=== PATIENT | female | born 1970 | race Caucasian/White ===

== ENCOUNTER 2021-12-25 11:52 | Day surgery (SDC) | payer MEDICAID, SELFPAY ==
[2021-12-25] VITALS (7 sets, daily range): BP systolic 93–150; BP diastolic 68–95; PULSE 60–69; RESP 16–20; TEMP 36.1–36.7; O2SAT 90–97; BMI 28.6
--- NOTE | 2021-12-25 | EGD_PTH ---
PATIENT: LILLY PLUNKETT LOC: EN U#:[id number] AGE/SX: 51/F ROOM: RE12/25/[address]: Dr. Rosales Britt DO : 1970 BED: DIS: 12/25/2021 SPEC #: [id number] RECD: 12/25/21 15:49 STATUS: LIO HALINA #: [id number] NICHOLE: 12/25/21 00:[address]: Rosales Britt DEPT: SURGICAL PATHOLOGY RECD BY: Juancarlos Ruiz ENTERED: 12/26/21 10:22 SP TYPE: EGD BIOPSY AMBER DR: Dr. Antonio Saldivar DO Tissues: A - Pyloric sphincter B - Esophageal mucous membrane Procedures: Special Stain Group II Surgery Specimen Level IV Alcian Blue/PAS (control) HEADER OPERATION: EGD ([facility]) with biopsies PRE-OP DIAGNOSIS: GERD, constipation TISSUE SUBMITTED: A ? Pyloric sphincter biopsy, B ? Distal esophagus biopsy MICROSCOPIC DIAGNOSIS A. Pyloric sphincter, biopsy: Fragments of gastric mucosa with mild chronic inflammation. See comment. B. Distal esophagus, biopsy: Gastroesophageal junctional mucosa with mild chronic inflammation. Focal changes of reflux. 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 No evidence of dysplasia. See comment. AM:rosalina 12/27/2021 COMMENT A. The results of immunohistochemistry for Helicobacter pylori will be reported separately ([id number]). B. Alcian blue/PAS stain with matched control supports the above diagnosis. Immunohistochemistry ([id number]) for P53 and Ki-67 will be performed and results will be reported separately. MICROSCOPIC DESCRIPTION Slides are reviewed. GROSS DESCRIPTION A - Received in fixative is one container labeled with the patient's name and designated pyloric sphincter biopsy. The specimen consists of two irregular fragments of light cornelius soft tissue that in aggregate measure 0.7 x 0.5 x 0.1 cm. The specimen is totally submitted in one cassette. B - Received in fixative is one container labeled with the patient's name and designated distal esophagus biopsy. The specimen consists of multiple irregular fragments of light cornelius soft tissue that in aggregate measure 1 x 0.2 x 0.1 cm. The specimen is totally submitted in one cassette. / AM:rosalina 12/26/2021 TC:3 CPT: 20017 x2, 16823
--- NOTE | 2021-12-25 12:36 | PCM.HP.BLA ---
History and Physical Date of Admission: 12/25/21 Medications Hydroxyzine [Atarax] 25 mg PO TID PRN PRN #20 tablet 03/04/16 [Rx Confirmed 10/16/21] albuterol sulfate 90 mcg/actuation aerosol inhaler 2 puff INHALATION Q6H PRN 10/16/21 [History Confirmed 10/16/21] atorvastatin 20 mg tablet 20 mg PO DAILY 10/16/21 [History Confirmed 10/16/21] bupropion HCl 150 mg 24 hr tablet, extended release 150 mg PO QAM 10/16/21 [History Confirmed 10/16/21] duloxetine 60 mg capsule,delayed release 60 mg PO DAILY 10/16/21 [History Confirmed 10/16/21] methocarbamol 750 mg tablet 750 mg PO TID 10/16/21 [History Confirmed 10/16/21] omeprazole 40 mg capsule,delayed release 40 mg PO DAILY 10/16/21 [History Confirmed 10/16/21] pregabalin 75 mg capsule 75 mg PO BID 10/16/21 [History Confirmed 10/16/21] propranolol 60 mg capsule,24 hr,extended release 60 mg PO DAILY 10/16/21 [History Confirmed 10/16/21] sumatriptan succinate 50 mg tablet See Rx Instructions PO .COMPLEX 10/16/21 [History Confirmed 10/16/21] polyethylene glycol 3350 17 gram oral powder packet 17 g PO DAILY #30 ea 11/21/21 [Rx Confirmed 11/21/21] PFSH Medical History (Updated 11/21/21 @ 15:06 by Maxine Rajan BICYCLE SERVICE TECHNICIAN, BICYCLE SERVICE TECHNICIAN-C) Abnormal peripheral pulse Acid reflux Adult ADHD Anxiety Arthritis of right hip Breathlessness lying flat Cervical spine pain Degeneration of cervical intervertebral disc Degenerative arthritis of lumbar spine Depression Dermatitis Elevated blood pressure reading Fatigue Fibromyalgia Foot callus Hair loss Heart murmur History of anemia History of gastric ulcer History of tremor Hyperlipidemia Intermittent claudication Left knee pain Medical marijuana use Migraines Piriformis syndrome of right side PTSD (post-traumatic stress disorder) Right hip pain Right thyroid nodule Thoracic degenerative disc disease Thyromegaly Surgical History (Updated 10/16/21 @ 16:30 by Cande Shelley) H/O section History of ankle surgery History of hand surgery History of knee replacement History of tonsillectomy Family History (Updated 10/16/21 @ 16:25 by Cande Shelley) Mother Diabetes Father Diabetes Liver disease Migraines Social History (Updated 10/16/21 @ 16:28 by Cande Shelley) household members: other details: Granddaughter housing: house Smoking Status: Current every day smoker tobacco type: cigarettes alcohol intake: current alcohol intake frequency: other substance use type: marijuana HPI HPI Details: LILLY PLUNKETT, is a 51 F accompanied by her service dog who presents to the office today for heartburn which she has had for many years. Omeprazole 20 mg wasn't controlling her symptoms. Omeprazole dose recently increased to 40 mg daily--that is controlling her heartburn, acid refluxing to mouth, cough that led to vomiting typically in the night; all those symptoms have resolved on the 40 mg dose. Denies chest pain. Previously took Zantac plus allergy med and that combo was effective. No EGD. She has had a colonoscopy, maybe 2014 or 2015, for bowel obstruction following hysterectomy; she reports they found bleeding ulcers. Not interested in updating colonoscopy at this time. Constipation -- started 2 mos ago, thinks may be due to med changes. BMs were ok before, not daily but not problematic. Has to strain sometimes now. Max 2 BM per week now. Gets cramping in lower abd. No meds OTC tried. No melena or hematochezia. Hx includes allergies, chronic bronchitis, , hysterectomy She isn't ready to quit smoking. ROS Const Constitutional: Positive for fatigue ENT ENT: Positive for ear or mastoid pain and nasal congestion; No difficulty swallowing Cardio Cardiology: Positive for leg pain with exertion Gastro GI: Positive for change in bowel habits, constipation and heartburn; No abdominal pain, belching, bloating, change in stool character, coffee ground emesis, cramping, diarrhea, difficulty swallowing, feeling full early, excessive flatus, incontinent of stools, Vomiting blood/hematemesis, Blood in stool, loose stools, Black,tarry stools, nausea/dyspepsia, pain with swallowing, vomiting or other Musc Musculoskeletal: Positive for joint pain, back pain, muscle cramps, stiffness, Arthritis, leg pain at night and leg pain with exertion Skin Skin: Positive for dry skin and itchy eyes; No yellowing of the eye Psych Psychiatric: Positive for anxiety, Positive for depression and Positive for hyperactivity Endo Endocrine: Positive for fatigue Aller/Imm Allergy/Immunologic: Positive for itchy eyes Clarence/Lymp Hematologic/Lymphatic: No easy bleeding or easy bruising Exam Const General: cooperative, comfortable, well developed and well groomed Nutritional Appearance: overweight Eyes Conjunctivae: conjunctivae normal Sclera: sclerae normal Resp Effort & Inspection: normal respiratory effort GI Inspection: normal to inspection Palpation: soft and nontender Psych Mental Status: mental status grossly normal Mood: congruent mood Quality Reporting Tobacco Screening ([facility] 138) Smoking Status: Current every day smoker Assessment and Plan Assessment and Plan (1) GERD (gastroesophageal reflux disease): Status: Acute Plan - Maxine Rajan BICYCLE SERVICE TECHNICIAN, BICYCLE SERVICE TECHNICIAN-C: Continue omeprazole 40 mg daily since it's controlling her symptoms. We will schedule her for EGD to evaluate for esophagitis, Lala's, gastrits, ulcers. f/u 2 wks after that. (2) Constipation: Status: Acute Plan - Maxine Rajan BICYCLE SERVICE TECHNICIAN, BICYCLE SERVICE TECHNICIAN-C: rx for generic miralax daily Plan Details Other Medications: New: polyethylene glycol 3350 17 grams PO DAILY 30 ea 5RF constipation I have re-examined the patient. There are no clinical changes since date of exam.
--- NOTE | 2021-12-25 13:00 | IMM_PTH ---
PATIENT: LILLY PLUNKETT LOC: EN U#:[id number] AGE/SX: 51/F ROOM: RE12/25/[address]: Dr. Rosales Britt DO : 1970 BED: DIS: 12/25/2021 SPEC #: [id number] RECD: 12/26/21 09:22 STATUS: LIO REZohaib #: [id number] NICHOLE: 12/25/21 13:[address]: Rosales Britt DEPT: IMMUNOHISTOCHEMISTRY RECD BY: Marifer Ibrahim ENTERED: 12/26/21 09:22 SP TYPE: IMMUNO OTHR DR: Dr. Antonio Saldivar DO Tissues: A - Pyloric sphincter B - Esophagus, NOS Procedures: H Pylori (initial) P53 (initial) KI-67 (add) PHYSICIAN & INSTITUTION [place] [id number] SPECIMEN INFORMATION: Tissue Source: A ? Pyloric sphincter biopsy, B ? Distal esophagus biopsy Clinical Info: GERD, constipation Specimen Number: [id number] A & B CPT code: 45701 x2, 85314 METHODOLOGY: Deparaffinized sections of prefer/formalin-fixed tissue or PAP/DQ stained slides are incubated with monoclonal/polyclonal antibodies/oligonucleotide probes. Localization is made via biotin free immunoperoxidase method. Appropriate controls are performed and reacted as expected. Results on target cell population are indicated in the following table: RESULTS: ANTIBODY / CLONE RESULT Block A H Pylori (polyclonal) negative Block B P53 (DO-7) negative Ki-67 (30-9) positive, low These tests were developed and their performance characteristics determined by [facility]. They may not have been cleared or approved by the U.S. Food and Drug Administration. The FDA has determined that such clearance or approval is not necessary. The above immunohistochemical/dualISH markers are ordered and reviewed by the Pathologist. INTERPRETATION: A. Pyloric sphincter, biopsy: Negative for Helicobacter pylori organisms. B. Distal esophagus, biopsy: No evidence of dysplasia. AM:rosalina 12/28/2021
[2021-12-25] MEDS: Lactated Ringers 1,000 ML 15 ML IV (13:06)
--- NOTE | 2021-12-25 13:29 | OP.EGD_ITS ---
Patient Name: Lindy Nguyen Procedure Date: 12/25/2021 1:03 PM Date of : 1970 Age: 51 Procedure: Upper GI endoscopy Indications: Heartburn, Esophageal reflux Providers: Rosales Britt DO Medicines: Propofol per Anesthesia, Monitored Anesthesia Care Patient Profile: This is a 51 year old female. Refer to note in patient chart for documentation of history and physical. Patient has symptoms of chronic heartburn. Complications: No immediate complications. Procedure: Pre-Anesthesia Assessment: - Prior to the procedure, a History and Physical was performed, and patient medications and allergies were reviewed. The risks and benefits of the procedure and the sedation options and risks were discussed with the patient. All questions were answered and informed consent was obtained. Patient identification and proposed procedure were verified by the physician in the pre-procedure area. Mental Status Examination: alert and oriented. Airway Examination: normal oropharyngeal airway and neck mobility. Respiratory Examination: clear to auscultation. CV Examination: normal. Prophylactic Antibiotics: The patient does not require prophylactic antibiotics. Prior Anticoagulants: The patient has taken no previous anticoagulant or antiplatelet agents. ASA Grade Assessment: II - A patient with mild systemic disease. After reviewing the risks and benefits, the patient was deemed in satisfactory condition to undergo the procedure. The anesthesia plan was to use moderate sedation / analgesia (conscious sedation). Immediately prior to administration of medications, the patient was re-assessed for adequacy to receive sedatives. The heart rate, respiratory rate, oxygen saturations, blood pressure, adequacy of pulmonary ventilation, and response to care were monitored throughout the procedure. The physical status of the patient was re-assessed after the procedure. After obtaining informed consent, the endoscope was passed under direct vision. Throughout the procedure, the patient's blood pressure, pulse, and oxygen saturations were monitored continuously. The Endoscope was introduced through the mouth, and advanced to the second part of duodenum. The upper GI endoscopy was accomplished without difficulty. The patient tolerated the procedure well. Scope In: 1:16:19 PM Scope Out: 1:20:50 PM Total Procedure Duration Time 0 hours 4 minutes 31 seconds Findings: LA Grade A (one or more mucosal breaks less than 5 mm, not extending between tops of 2 mucosal folds) esophagitis with no bleeding was found 36 to 39 cm from the incisors. Biopsies were taken with a cold forceps for histology. Verification of patient identification for the specimen was done. Estimated blood loss was minimal. Mucosal changes including ringed esophagus and circumferential folds were found in the middle third of the esophagus. Patchy granular mucosa was found at the pylorus. Biopsies were taken with a cold forceps for histology. Verification of patient identification for the specimen was done. Estimated blood loss was minimal. The second portion of the duodenum was normal. Impression: - LA Grade A reflux esophagitis. Biopsied. - Esophageal mucosal changes suggestive of eosinophilic esophagitis. - Granular gastric mucosa. Biopsied. - Normal second portion of the duodenum. Recommendation: - Discharge patient to home. - Resume previous diet. - Continue present medications. - Await pathology results. Procedure Code(s): --- Professional --- 65130, Esophagogastroduodenoscopy, flexible, transoral; with biopsy, single or multiple CPT copyright 2017 [employer]. All rights reserved. The codes documented in this report are preliminary and upon geothermal installer review may be revised to meet current compliance requirements. Rosales Britt DO 12/25/2021 1:28:36 PM This report has been signed electronically. Number of Addenda: 1 Note Initiated On: 12/25/2021 1:03 PM Addendum Number: 1 Addendum Date: 04/26/2022 6:07:47 AM MAC was used as sedation for this procedure. Rosales Britt DO 04/26/2022 6:07:51 AM This report has been signed electronically.
--- NOTE | 2021-12-25 13:29 | OP.CCLET_ITS ---
04/26/2022 Antonio Saldivar Do Re : Upper GI endoscopy procedure for Lindy Nguyen Dear Yariel This procedure was performed on Saturday, December 25, 2021. My impressions and recommendations are as follows: Impressions : - LA Grade A reflux esophagitis. Biopsied. - Esophageal mucosal changes suggestive of eosinophilic esophagitis. - Granular gastric mucosa. Biopsied. - Normal second portion of the duodenum. Recommendations : - Discharge patient to home. - Resume previous diet. - Continue present medications. - Await pathology results. My findings are described in the full procedure note, which is enclosed. If I can be of further assistance, please feel free to contact me at . Sincerely, Rosales Britt DO 12/25/2021 1:28:36 PM This report has been signed electronically.
== END 2021-12-25 14:25 | disposition home or self-care (01) ==
LOC: EN 11:54 → AC 11:55
PROVIDERS: PCP Student in an Organized Health Care Education/Training Program; Referring Provider Student in an Organized Health Care Education/Training Program; Visit Provider Internal Medicine Gastroenterology
PROC: 0DJ08ZZ Inspection of Upper Intestinal Tract, Via Natural or Artificial Opening Endoscopic (ICD-10-PCS; CPT 43235; principal; 2021-12-25 12:55)
DX: K22.70 Barrett's esophagus without dysplasia (principal); K21.00 Gastro-esophageal reflux disease with esophagitis, without bleeding; E78.5 Hyperlipidemia, unspecified; F17.210 Nicotine dependence, cigarettes, uncomplicated; F90.9 Attention-deficit hyperactivity disorder, unspecified type; F41.9 Anxiety disorder, unspecified; F32.A Depression, unspecified; M79.7 Fibromyalgia; Z87.19 Personal history of other diseases of the digestive system; F43.10 Post-traumatic stress disorder, unspecified; Z79.899 Other long term (current) drug therapy; M16.11 Unilateral primary osteoarthritis, right hip; J45.909 Unspecified asthma, uncomplicated
CPT/HCPCS: 43239; 88305; 88313; 88341; 88342; J7120; J2405

== ENCOUNTER 2022-11-27 06:40 | Day surgery (SDC) | payer MEDICAID, SELFPAY ==
[2022-11-27] VITALS (7 sets, daily range): BP systolic 77–142; BP diastolic 44–77; PULSE 75–99; RESP 12–18; TEMP 36.2–36.4; O2SAT 93–100; BMI 27.1
--- NOTE | 2022-11-27 07:16 | PCM.HP.BLA ---
History and Physical Date of Admission: 11/27/22 2 F who presents to the office today for discussion of EGD findings. small hiatal hernia, appearance suggestive of EOE. on biopsy she does have Lala's, negative for dysplasia. Long hx of GERD. Used to be controlled with omeprazole 20 mg daily; then she started having heartburn, acid refluxing to mouth, cough that led to vomiting typically in the night; all those symptoms were relieved when her PCP increased the dose to 40 mg daily. Denies chest pain. No prior EGD. She has had a colonoscopy, maybe 2014 or 2015, for bowel obstruction following hysterectomy; she reports they found bleeding ulcers. Not interested in updating colonoscopy at this time. Constipation -- she blames lyrica, manages it with miralax. No melena or hematochezia. Hx includes allergies, chronic bronchitis, , hysterectomy She isn't ready to quit smoking. 12/25/21 EGD Impression: ? - LA Grade A reflux esophagitis. Biopsied. ? - Esophageal mucosal changes suggestive of ? eosinophilic esophagitis. ? - Granular gastric mucosa. Biopsied. ? - Normal second portion of the duodenum. MICROSCOPIC DIAGNOSIS A.? Pyloric sphincter, biopsy: ?Fragments of gastric mucosa with mild chronic inflammation. ?See comment. negative H Pylori B.? Distal esophagus, biopsy: ?Gastroesophageal junctional mucosa with mild chronic inflammation. ?Focal changes of reflux. 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 ?No evidence of dysplasia. ?See comment ROS Const Constitutional: Positive for weight change; No fatigue ENT ENT: No difficulty swallowing Cardio Cardiology: Positive for leg pain with exertion Gastro GI: Positive for bloating and excessive flatus; No abdominal pain, belching, change in bowel habits, change in stool character, coffee ground emesis, constipation, cramping, diarrhea, heartburn, difficulty swallowing, feeling full early, incontinent of stools, Vomiting blood/hematemesis, Blood in stool, loose stools, Black,tarry stools, nausea/dyspepsia, pain with swallowing, vomiting or other Musc Musculoskeletal: Positive for abnormal gait, Arthritis and leg pain with exertion; No joint pain Skin Skin: No yellowing of the eye or itchy eyes Neuro Neurology: Positive for abnormal gait and tremor(s) Psych Psychiatric: Positive for anxiety, Positive for depression and Positive for hyperactivity Endo Endocrine: Positive for weight change; No fatigue Aller/Imm Allergy/Immunologic: No itchy eyes Clarence/Lymp Hematologic/Lymphatic: Positive for easy bruising; No easy bleeding Exam Const General: cooperative, comfortable and no acute distress Quality Reporting Tobacco Screening ([facility] 138) Smoking Status: Current every day smoker Assessment and Plan Assessment and Plan (1) GERD (gastroesophageal reflux disease): ?Status:?Acute (2) Barretts esophagus: ?Status:?Acute ?Plan: We reviewed her EGD findings and biopsy results.? She has Lala's esophagus, we discussed increased risk for esophageal cancer, especially in a smoker.? Continue PPI therapy indefinitely.? Her symptoms are controlled on omeprazole 40 mg daily.? Plan will be to repeat EGD to reevaluate Lala's in approximately November 2022.? With 2-week follow-up after that. I have examined the patient and the H&P has been reviewed. There are no clinical changes since date of exam.
[2022-11-27] MEDS: Lactated Ringers 1,000 ML 15 ML IV (07:22)
--- NOTE | 2022-11-27 07:45 | IMM_PTH ---
PATIENT: LILLY PLUNKETT LOC: EN U#:[id number] AGE/SX: 52/F ROOM: RE11/27/[address]: Dr. Rosales Britt DO : 1970 BED: DIS: 11/27/2022 SPEC #: [id number] RECD: 11/27/22 13:05 STATUS: LIO REQ #: [id number] NICHOLE: 11/27/22 07:[address]: Rosales Britt DEPT: IMMUNOHISTOCHEMISTRY RECD BY: Marifer Ibrahim ENTERED: 11/27/22 13:06 SP TYPE: IMMUNO OTHR DR: Dr. Antonio Saldivar DO Tissues: B - Stomach, NOS C - Esophagus, NOS Procedures: H Pylori (initial) P53 (initial) KI-67 (add) PHYSICIAN & INSTITUTION [place] [id number] SPECIMEN INFORMATION: Tissue Source: B ? Gastric antrum, C ? Distal esophagus Clinical Info: GERD, Lala?s esophagus Specimen Number: [id number] B & C CPT code: 12946 x2, 25415 METHODOLOGY: Deparaffinized sections of prefer/formalin-fixed tissue or PAP/DQ stained slides are incubated with monoclonal/polyclonal antibodies/oligonucleotide probes. Localization is made via biotin free immunoperoxidase method. Appropriate controls are performed and reacted as expected. Results on target cell population are indicated in the following table: RESULTS: ANTIBODY / CLONE RESULT Block B H Pylori (polyclonal) negative Block C P53 (DO-7) positive, wild type Ki-67 (30-9) positive, low These tests were developed and their performance characteristics determined by [facility]. They may not have been cleared or approved by the U.S. Food and Drug Administration. The FDA has determined that such clearance or approval is not necessary. The above immunohistochemical/dualISH markers are ordered and reviewed by the Pathologist. INTERPRETATION: B. Gastric antrum, biopsy: Negative for Helicobacter pylori organisms. C. Distal esophagus, biopsy: No evidence of dysplasia. AM:rosalina 11/29/2022
--- NOTE | 2022-11-27 07:45 | COLBX_PTH ---
PATIENT: LILLY PLUNKETT LOC: EN U#:[id number] AGE/SX: 52/F ROOM: RE11/27/[address]: Dr. Rosales Britt DO : 1970 BED: DIS: 11/27/2022 SPEC #: [id number] RECD: 11/27/22 10:50 STATUS: LIO HALINA #: [id number] NICHOLE: 11/27/22 07:[address]: Rosales Britt DEPT: SURGICAL PATHOLOGY RECD BY: Ian Massey ENTERED: 11/27/22 11:32 SP TYPE: COLON BX OTHR DR: Dr. Antonio Saldivar DO Tissues: A - Duodenum, NOS B - COLON BIOPSY C - Esophagus, NOS D - Ileum, NOS E - COLON BIOPSY F - Rectum, NOS Procedures: Special Stain Group II Surgery Specimen Level IV Alcian Blue/PAS (control) HEADER OPERATION: Colonoscopy, EGD (MAC), biopsy, polypectomy PRE-OP DIAGNOSIS: GERD, Lala?s esophagus TISSUE SUBMITTED: A ? Duodenum biopsy, B ? Gastric antrum biopsy, C ? Distal esophagus biopsy, D ? Terminal ileum biopsy, E ? Random colon biopsies, F ? Rectal polyp MICROSCOPIC DIAGNOSIS A. Duodenum, biopsy: Minimal nonspecific chronic inflammation. B. Gastric antrum, biopsy: Mild chronic gastritis. See comment. C. Distal esophagus, biopsy: Gastroesophageal junctional mucosa with mild chronic inflammation. 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 No evidence of dysplasia. Focal changes of reflux. See comment. D. Terminal ileum, biopsy: No pathologic change. E. Colon, random biopsy: Focal changes suspicious for lymphocytic colitis. F. Rectal polyp, biopsy: Fragments of hyperplastic polyp. AM:rosalina 11/28/2022 COMMENT B. The results of immunohistochemistry for Helicobacter pylori will be reported separately ([id number]). C. Immunohistochemistry ([id number]) for P53 and Ki-67 will be performed and results will be reported separately. Alcian blue/PAS stain with matched control supports the above diagnosis. MICROSCOPIC DESCRIPTION Slides are reviewed. GROSS DESCRIPTION A - Received in fixative is one container labeled with the patient's name and designated biopsy duodenum. The specimen consists of multiple irregular fragments of light cornelius soft tissue that in aggregate measure 1.0 x 0.3 x 0.1 cm. The specimen is totally submitted in one cassette. B - Received in fixative is one container labeled with the patient's name and designated biopsy gastric antrum. The specimen consists of two irregular fragments of light cornelius soft tissue that in aggregate measure 0.6 x 0.3 x 0.1 cm. The specimen is totally submitted in one cassette. C - Received in fixative is one container labeled with the patient's name and designated biopsy distal esophagus. The specimen consists of multiple irregular fragments of light cornelius soft tissue that in aggregate measure 1.0 x 0.3 x 0.1 cm. The specimen is totally submitted in one cassette. D - Received in fixative is one container labeled with the patient's name and designated terminal ileum biopsy. The specimen consists of two irregular fragments of light cornelius soft tissue that in aggregate measure 0.8 x 0.2 x 0.1 cm. The specimen is totally submitted in one cassette. E - Received in fixative is one container labeled with the patient's name and designated random colon biopsy. The specimen consists of multiple irregular fragments of light cornelius soft tissue that in aggregate measure 0.8 x 0.4 x 0.1 cm. The specimen is totally submitted in one cassette. F - Received in fixative is one container labeled with the patient's name and designated rectal polyp. The specimen consists of two irregular fragments of light cornelius soft tissue that in aggregate measure 0.6 x 0.3 x 0.1 cm. The specimen is totally submitted in one cassette. / SJ:rg 11/27/2022 TC:3 CPT: 94786 x6, 58608
--- NOTE | 2022-11-27 08:23 | OP.EGD_ITS ---
Patient Name: Lindy Nguyen Procedure Date: 11/27/2022 7:42 AM Date of : 1970 Age: 52 Procedure: Upper GI endoscopy Indications: Follow-up of Lala's esophagus Providers: Rosales Britt DO Referring MD: Rosales Britt DO Medicines: Monitored Anesthesia Care Patient Profile: This is a 52 year old female. Refer to note in patient chart for documentation of history and physical. Patient has symptoms of chronic heartburn. Complications: No immediate complications. Procedure: Pre-Anesthesia Assessment: - Prior to the procedure, a History and Physical was performed, and patient medications and allergies were reviewed. The risks and benefits of the procedure and the sedation options and risks were discussed with the patient. All questions were answered and informed consent was obtained. Patient identification and proposed procedure were verified by the physician in the pre-procedure area. Mental Status Examination: normal. Prophylactic Antibiotics: The patient does not require prophylactic antibiotics. Prior Anticoagulants: The patient has taken no previous anticoagulant or antiplatelet agents. ASA Grade Assessment: II - A patient with mild systemic disease. After reviewing the risks and benefits, the patient was deemed in satisfactory condition to undergo the procedure. The anesthesia plan was to use monitored anesthesia care (MAC). Immediately prior to administration of medications, the patient was re-assessed for adequacy to receive sedatives. The heart rate, respiratory rate, oxygen saturations, blood pressure, adequacy of pulmonary ventilation, and response to care were monitored throughout the procedure. The physical status of the patient was re-assessed after the procedure. After obtaining informed consent, the endoscope was passed under direct vision. Throughout the procedure, the patient's blood pressure, pulse, and oxygen saturations were monitored continuously. The Colonoscope was introduced through the mouth, and advanced to the second part of duodenum. The upper GI endoscopy was accomplished without difficulty. The patient tolerated the procedure well. Scope In: 7:54:37 AM Scope Out: 7:59:09 AM Total Procedure Duration Time 0 hours 4 minutes 32 seconds Findings: The Z-line was irregular and was found 38 cm from the incisors. Biopsies were taken with a cold forceps for histology. Verification of patient identification for the specimen was done. Estimated blood loss was minimal. A small hiatal hernia was present. Patchy mild inflammation characterized by erosions and erythema with small gastric ulcerwas found in the gastric body. Biopsies were taken with a cold forceps for histology. Verification of patient identification for the specimen was done. Estimated blood loss was minimal. Patchy mild inflammation characterized by congestion (edema), erosions and erythema was found in the duodenal bulb resembling celiac disease. Biopsies for histology were taken with a cold forceps for evaluation of celiac disease. Impression: - Z-line irregular, 38 cm from the incisors. Biopsied. - Small hiatal hernia. - Gastritis with small gastric ulcer.s resembling celiac disease. Biopsied. Recommendation: - Await pathology results. - Repeat upper endoscopy in 1 year for surveillance. - Return to GI office. - Continue present medications. Procedure Code(s): --- Professional --- 13173, Esophagogastroduodenoscopy, flexible, transoral; with biopsy, single or multiple CPT copyright 2017 [employer]. All rights reserved. The codes documented in this report are preliminary and upon manager pharmaceutical review may be revised to meet current compliance requirements. Rosales Britt DO 11/27/2022 8:22:46 AM This report has been signed electronically. Number of Addenda: 0 Note Initiated On: 11/27/2022 7:42 AM
--- NOTE | 2022-11-27 08:23 | OP.CCLET_ITS ---
11/27/2022 Antonio Saldivar Do Re : Upper GI endoscopy procedure for Lindy Nguyen Dear Yariel This procedure was performed on Sunday, November 27, 2022. My impressions and recommendations are as follows: Impressions : - Z-line irregular, 38 cm from the incisors. Biopsied. - Small hiatal hernia. - Gastritis with small gastric ulcer.s resembling celiac disease. Biopsied. Recommendations : - Await pathology results. - Repeat upper endoscopy in 1 year for surveillance. - Return to GI office. - Continue present medications. My findings are described in the full procedure note, which is enclosed. If I can be of further assistance, please feel free to contact me at . Sincerely, Rosales Britt, 11/27/2022 8:22:46 AM This report has been signed electronically.
--- NOTE | 2022-11-27 08:28 | OP.COLON_ITS ---
Patient Name: Lindy Nguyen Procedure Date: 11/27/2022 7:59 AM Date of : 1970 Age: 52 Procedure: Colonoscopy Indications: Screening for colorectal malignant neoplasm Providers: Rosales Britt DO Referring MD: Rosales Britt DO Medicines: Monitored Anesthesia Care Patient Profile: This is a 52 year old female. Refer to note in patient chart for documentation of history and physical. Patient has symptoms of chronic heartburn. Last Colonoscopy: several years ago. Complications: No immediate complications. Procedure: Pre-Anesthesia Assessment: - Prior to the procedure, a History and Physical was performed, and patient medications and allergies were reviewed. The risks and benefits of the procedure and the sedation options and risks were discussed with the patient. All questions were answered and informed consent was obtained. Patient identification and proposed procedure were verified by the physician in the pre-procedure area. Mental Status Examination: normal. Prophylactic Antibiotics: The patient does not require prophylactic antibiotics. Prior Anticoagulants: The patient has taken no previous anticoagulant or antiplatelet agents. ASA Grade Assessment: II - A patient with mild systemic disease. After reviewing the risks and benefits, the patient was deemed in satisfactory condition to undergo the procedure. The anesthesia plan was to use monitored anesthesia care (MAC). Immediately prior to administration of medications, the patient was re-assessed for adequacy to receive sedatives. The heart rate, respiratory rate, oxygen saturations, blood pressure, adequacy of pulmonary ventilation, and response to care were monitored throughout the procedure. The physical status of the patient was re-assessed after the procedure. After I obtained informed consent, the scope was passed under direct vision. Throughout the procedure, the patient's blood pressure, pulse, and oxygen saturations were monitored continuously. The Colonoscope was introduced through the anus and advanced to the terminal ileum. The colonoscopy was performed without difficulty. The patient tolerated the procedure well. The quality of the bowel preparation was fair. Scope In: 8:01:45 AM Scope Withdrawal Time 0 hours 11 minutes 46 seconds Scope Out: 8:17:10 AM Total Procedure Duration Time 0 hours 15 minutes 25 seconds Findings: The perianal and digital rectal examinations were normal. Three sessile polyps were found in the rectum. The polyps were 1 to 2 mm in size. These polyps were removed with a cold snare. Resection and retrieval were complete. Verification of patient identification for the specimen was done. Estimated blood loss was minimal. An area of mildly congested mucosa was found in the recto-sigmoid colon, in the sigmoid colon and in the descending colon. Biopsies were taken with a cold forceps for histology. Verification of patient identification for the specimen was done. Estimated blood loss was minimal. Many small-mouthed diverticula were found in the recto-sigmoid colon and sigmoid colon. Stool was found in the recto-sigmoid colon, in the sigmoid colon, in the ascending colon and in the cecum. A patchy area of the terminal ileum was congested. Biopsies were taken with a cold forceps for histology. Verification of patient identification for the specimen was done. Estimated blood loss was minimal. Impression: - Preparation of the colon was fair. - Three 1 to 2 mm polyps in the rectum, removed with a cold snare. Resected and retrieved. - Congested mucosa in the recto-sigmoid colon, in the sigmoid colon and in the descending colon. Biopsied. - Diverticulosis in the recto-sigmoid colon and in the sigmoid colon. - Stool in the recto-sigmoid colon, in the sigmoid colon, in the ascending colon and in the cecum. - Congested mucosa in the terminal ileum. Biopsied. Recommendation: - Discharge patient to home. - Resume previous diet. - Continue present medications. - Await pathology results. - Repeat colonoscopy in 5 years for surveillance. - Return to GI office. Procedure Code(s): --- Professional --- 17715, Colonoscopy, flexible; with removal of tumor(s), polyp(s), or other lesion(s) by snare technique 78556, 59, Colonoscopy, flexible; with biopsy, single or multiple CPT copyright 2017 [employer]. All rights reserved. The codes documented in this report are preliminary and upon oriental rug repairer review may be revised to meet current compliance requirements. Rosales Britt DO 11/27/2022 8:28:09 AM This report has been signed electronically. Number of Addenda: 0 Note Initiated On: 11/27/2022 7:59 AM
--- NOTE | 2022-11-27 08:28 | OP.CCLET_ITS ---
11/27/2022 Antonio Saldivar Do Re : Colonoscopy procedure for Lindy Nguyen Dear Yariel This procedure was performed on Sunday, November 27, 2022. My impressions and recommendations are as follows: Impressions : - Preparation of the colon was fair. - Three 1 to 2 mm polyps in the rectum, removed with a cold snare. Resected and retrieved. - Congested mucosa in the recto-sigmoid colon, in the sigmoid colon and in the descending colon. Biopsied. - Diverticulosis in the recto-sigmoid colon and in the sigmoid colon. - Stool in the recto-sigmoid colon, in the sigmoid colon, in the ascending colon and in the cecum. - Congested mucosa in the terminal ileum. Biopsied. Recommendations : - Discharge patient to home. - Resume previous diet. - Continue present medications. - Await pathology results. - Repeat colonoscopy in 5 years for surveillance. - Return to GI office. My findings are described in the full procedure note, which is enclosed. If I can be of further assistance, please feel free to contact me at . Sincerely, Rosales Britt DO 11/27/2022 8:28:09 AM This report has been signed electronically.
== END 2022-11-27 09:36 | disposition home or self-care (01) ==
LOC: EN 06:43 → AC 06:45
PROVIDERS: PCP Student in an Organized Health Care Education/Training Program; Referring Provider Student in an Organized Health Care Education/Training Program; Visit Provider Internal Medicine Gastroenterology
PROC: 0DJD8ZZ Inspection of Lower Intestinal Tract, Via Natural or Artificial Opening Endoscopic (ICD-10-PCS; CPT 45378; principal; 2022-11-27 07:40)
DX: Z12.11 Encounter for screening for malignant neoplasm of colon (principal); K44.9 Diaphragmatic hernia without obstruction or gangrene; K25.9 Gastric ulcer, unspecified as acute or chronic, without hemorrhage or perforation; K29.70 Gastritis, unspecified, without bleeding; F17.200 Nicotine dependence, unspecified, uncomplicated; K22.70 Barrett's esophagus without dysplasia; K62.1 Rectal polyp; K57.30 Diverticulosis of large intestine without perforation or abscess without bleeding
CPT/HCPCS: 43239; 45385; 45380; 88305; 88313; 88341; 88342; J7120; J2405

== ENCOUNTER 2023-12-10 07:35 | Day surgery (SDC) | payer MEDICAID, SELFPAY ==
--- NOTE | 2023-12-10 07:30 | EGD_PTH ---
PATIENT: LILLY PLUNKETT LOC: EN U#:[id number] AGE/SX: 53/F ROOM: RE12/10/[address]: Dr. Rosales Britt DO : 1970 BED: DIS: 12/10/2023 SPEC #: [id number] RECD: 12/10/23 09:45 STATUS: LIO HALINA #: [id number] NICHOLE: 12/10/23 07:[address]: Rosales Britt DEPT: SURGICAL PATHOLOGY RECD BY: Ian Massey ENTERED: 12/10/23 12:18 SP TYPE: EGD BIOPSY AMBER DR: Dr. Antonio Saldivar DO Tissues: Esophagus, NOS Procedures: Special Stain Group II Surgery Specimen Level IV Alcian Blue/PAS (control) HEADER OPERATION: EGD with biopsies PRE-OP DIAGNOSIS: GERD, Lala's esophagus, constipation TISSUE SUBMITTED: Distal esophagus biopsy MICROSCOPIC DIAGNOSIS Distal esophagus, biopsy: Gastroesophageal junctional mucosa with mild chronic inflammation. No evidence of goblet cell metaplasia. See comment. / 12/11/2023 COMMENT Alcian blue/PAS stain with matched control supports the above diagnosis. MICROSCOPIC DESCRIPTION Slides are reviewed. GROSS DESCRIPTION Received in fixative is one container labeled with the patient's name and designated Distal esophagus biopsy. The specimen consists of multiple irregular fragments of light cornelius soft tissue that in aggregate measure 1.0 x 0.5 x 0.1 cm. The specimen is totally submitted in one cassette. / 12/10/2023 TC:3 CPT:80007,65405
[2023-12-10 07:51] VITALS: BP 135/77; PULSE 89; RESP 16; TEMP 36.1; O2SAT 98; BMI 27.6
[2023-12-10] MEDS: Lactated Ringers 1,000 ML 15 ML IV (07:58)
--- NOTE | 2023-12-10 08:15 | PCM.HP.BLA ---
History and Physical Date of Admission: 12/10/23 LILLY PLUNKETT, is a 52 F who presents to the office today for discussion of EGD and colonoscopy results. Hx of Lala's esophagus. EGD reveals small hiatal hernia, gastritis; +Lala's, negative dysplasia. Colonoscopy revealed hyperplastic polyp, possible lymphocytic colitis. Sometimes forgets to take omeprazole, then she will have heartburn. No abd pain or diarrhea. Manages constipation with miralax. She isn't ready to quit smoking. 11/27/22 EGS and Colonoscopy Impression: ? - Z-line irregular, 38 cm from the incisors. ? Biopsied. ? - Small hiatal hernia. ? - Gastritis with small gastric ulcer.s ? resembling celiac disease. Biopsied. Impression: ? - Preparation of the colon was fair. ? - Three 1 to 2 mm polyps in the rectum, removed ? with a cold snare. Resected and retrieved. ? - Congested mucosa in the recto-sigmoid colon, ? in the sigmoid colon and in the descending ? colon. Biopsied. ? - Diverticulosis in the recto-sigmoid colon and ? in the sigmoid colon. ? - Stool in the recto-sigmoid colon, in the ? sigmoid colon, in the ascending colon and in ? the cecum. ? - Congested mucosa in the terminal ileum. ? Biopsied. MICROSCOPIC DIAGNOSIS A. Duodenum, biopsy: Minimal nonspecific chronic inflammation. B. Gastric antrum, biopsy: Mild chronic gastritis. Negative H pylori C. Distal esophagus, biopsy: Gastroesophageal junctional mucosa with mild chronic inflammation. 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 No evidence of dysplasia. Focal changes of reflux. See comment. D. Terminal ileum, biopsy: No pathologic change. E. Colon, random biopsy: Focal changes suspicious for lymphocytic colitis. F. Rectal polyp, biopsy: Fragments of hyperplastic polyp ROS Const Constitutional: No fatigue ENT ENT: No difficulty swallowing Cardio Cardiology: Positive for leg pain with exertion Gastro GI: Positive for bloating, heartburn and excessive flatus; No abdominal pain, belching, change in bowel habits, change in stool character, coffee ground emesis, constipation, cramping, diarrhea, difficulty swallowing, feeling full early, incontinent of stools, Vomiting blood/hematemesis, Blood in stool, loose stools, Black,tarry stools, nausea/dyspepsia, pain with swallowing, vomiting or other Musc Musculoskeletal: Positive for abnormal gait, joint pain, back pain, muscle cramps, stiffness, Arthritis, restless legs, leg pain at night and leg pain with exertion Skin Skin: No yellowing of the eye or itchy eyes Neuro Neurology: Positive for abnormal gait and restless legs Psych Psychiatric: Positive for anxiety and No depression Endo Endocrine: No fatigue Aller/Imm Allergy/Immunologic: No itchy eyes Clarence/Lymp Hematologic/Lymphatic: No easy bleeding or easy bruising Exam Const General: cooperative and comfortable Orientation: alert, awake and oriented x3 Quality Reporting Tobacco Screening ([facility] 138) Smoking Status: Current every day smoker Assessment and Plan Assessment and Plan (1) GERD (gastroesophageal reflux disease): Status: Chronic Plan: We reviewed EGD and colonoscopy findings Has Lala's w/o dysplasia Continue omeprazole 40 mg daily Repeat EGD in 1 yr Encouraged smoking cessation (2) Barretts esophagus: Status: Chronic Plan: as above (3) Constipation: Status: Chronic Plan: Continue miralax Medications: New omeprazole 40 mg PO DAILY 90 caps 3RF Refilled polyethylene glycol 3350 17 grams PO DAILY 100 ea 3RF constipation polyethylene glycol 3350 17 grams PO DAILY 100 ea 3RF constipation I have examined the patient and the H&P has been reviewed. There are no clinical changes since date of exam.
--- NOTE | 2023-12-10 08:36 | OP.EGD_ITS ---
Patient Name: Lindy Nguyen Procedure Date: 12/10/2023 8:22 AM Date of : 1970 Age: 53 Procedure: Upper GI endoscopy Indications: Follow-up of Lala's esophagus Providers: Rosales Britt DO Medicines: Monitored Anesthesia Care Patient Profile: This is a 53 year old female. Refer to note in patient chart for documentation of history and physical. Patient has symptoms of chronic heartburn. Complications: No immediate complications. Procedure: Pre-Anesthesia Assessment: - Prior to the procedure, a History and Physical was performed, and patient medications and allergies were reviewed. The patient is competent. The risks and benefits of the procedure and the sedation options and risks were discussed with the patient. All questions were answered and informed consent was obtained. Patient identification and proposed procedure were verified by the physician in the pre-procedure area. Mental Status Examination: alert and oriented. Airway Examination: normal oropharyngeal airway and neck mobility. Respiratory Examination: clear to auscultation. CV Examination: normal. Prophylactic Antibiotics: The patient does not require prophylactic antibiotics. Prior Anticoagulants: The patient has taken no anticoagulant or antiplatelet agents. ASA Grade Assessment: II - A patient with mild systemic disease. After reviewing the risks and benefits, the patient was deemed in satisfactory condition to undergo the procedure. The anesthesia plan was to use monitored anesthesia care (MAC). Immediately prior to administration of medications, the patient was re-assessed for adequacy to receive sedatives. The heart rate, respiratory rate, oxygen saturations, blood pressure, adequacy of pulmonary ventilation, and response to care were monitored throughout the procedure. The physical status of the patient was re-assessed after the procedure. After obtaining informed consent, the endoscope was passed under direct vision. Throughout the procedure, the patient's blood pressure, pulse, and oxygen saturations were monitored continuously. The gastroscope was introduced through the mouth, and advanced to the second part of duodenum. The upper GI endoscopy was accomplished without difficulty. The patient tolerated the procedure well. Scope In: 8:28:18 AM Scope Out: 8:31:06 AM Total Procedure Duration Time 0 hours 2 minutes 48 seconds Findings: There were esophageal mucosal changes secondary to established short-segment Lala's disease present in the lower third of the esophagus. The maximum longitudinal extent of these mucosal changes was 2 cm in length. Mucosa was biopsied with a cold forceps for histology in a targeted manner at intervals of 1 cm in the lower third of the esophagus. One specimen bottle was sent to pathology. Verification of patient identification for the specimen was done. Estimated blood loss was minimal. No gross lesions were noted in the entire examined stomach. No gross lesions were noted in the first portion of the duodenum. Impression: - Esophageal mucosal changes secondary to established short-segment Lala's disease. Biopsied. - No gross lesions in the entire stomach. - No gross lesions in the first portion of the duodenum. Recommendation: - Discharge patient to home. - Resume previous diet. - Continue present medications. - Await pathology results. - Repeat upper endoscopy in 1 year. Procedure Code(s): --- Professional --- 16174, Esophagogastroduodenoscopy, flexible, transoral; with biopsy, single or multiple CPT copyright 2021 [employer] [place] [employer] [employer]. All rights reserved. The codes documented in this report are preliminary and upon complaint supervisor review may be revised to meet current compliance requirements. Rosales Britt DO 12/10/2023 8:36:19 AM This report has been signed electronically. Number of Addenda: 0 Note Initiated On: 12/10/2023 8:22 AM
[2023-12-10 08:37] VITALS: BP 110/69; BP 135/77; PULSE 76; RESP 18; TEMP 36.4; O2SAT 95
--- NOTE | 2023-12-10 08:37 | OP.CCLET_ITS ---
12/10/2023 Antonio Saldivar Do Re : Upper GI endoscopy procedure for Lindy Nguyen Dear Yariel This procedure was performed on Sunday, December 10, 2023. My impressions and recommendations are as follows: Impressions : - Esophageal mucosal changes secondary to established short-segment Lala's disease. Biopsied. - No gross lesions in the entire stomach. - No gross lesions in the first portion of the duodenum. Recommendations : - Discharge patient to home. - Resume previous diet. - Continue present medications. - Await pathology results. - Repeat upper endoscopy in 1 year. My findings are described in the full procedure note, which is enclosed. If I can be of further assistance, please feel free to contact me at . Sincerely, Rosales Britt, 12/10/2023 8:36:19 AM This report has been signed electronically.
[2023-12-10 08:40] VITALS: BP 108/73; BP 135/77; PULSE 83; RESP 18; O2SAT 94
[2023-12-10 08:45] VITALS: BP 107/59; BP 135/77; PULSE 77; RESP 18; O2SAT 96
[2023-12-10 08:56] VITALS: BP 117/72; BP 135/77; PULSE 73; RESP 18; TEMP 36.2; O2SAT 97
[2023-12-10 09:12] VITALS: BP 135/77
== END 2023-12-10 09:23 | disposition home or self-care (01) ==
LOC: EN 07:36 → AC 07:38
PROVIDERS: PCP Student in an Organized Health Care Education/Training Program; Referring Provider Student in an Organized Health Care Education/Training Program; Visit Provider Internal Medicine Gastroenterology
PROC: 0DJ08ZZ Inspection of Upper Intestinal Tract, Via Natural or Artificial Opening Endoscopic (ICD-10-PCS; CPT 43235; principal; 2023-12-10 07:25)
DX: K22.70 Barrett's esophagus without dysplasia (principal); F17.200 Nicotine dependence, unspecified, uncomplicated; K21.9 Gastro-esophageal reflux disease without esophagitis; K59.09 Other constipation
CPT/HCPCS: 43239; 88305; 88313; J7120; J2405

== ENCOUNTER → 2024-08-16 | Outpatient (CLI) | payer MEDICAID, SELFPAY ==
--- NOTE | 2024-08-16 12:52 | ECHOD_ITS ---
Reason For Study: CHEST PAIN Procedure This was a 2D Doppler, Color Flow transthoracic echocardiogram. Exam performed in department. Left Ventricle Normal size and thickness. The left ventricular ejection fraction is 65 %. Normal diastology for age. Right Ventricle Normal right ventricle. Atria The left and right atria are normal. Mitral Valve Trivial mitral valve insufficiency. Tricuspid Valve Trivial tricuspid valve insufficiency. Unable to estimate RV systolic pressure due to insufficient tricuspid regurgitant envelope. Aortic Valve Trisinus/trileaflet aortic valve. Pulmonic Valve The pulmonic valve is not well visualized. Great Vessels Normal sized aortic root. Pericardium/Pleural No pericardial effusion. MMode/2D Measurements & Calculations LVIDd: 4.3 cm IVSd: 0.92 cm LVOT diam: 1.7 cm LVIDs: 3.4 cm LVPWd: 0.84 cm LVOT area: 2.3 cm2 RVDd: 2.6 cm FS: 22.3 % Ao root diam: 3.3 cm LAV(MOD-bp): 34.7 ml LVAd ap4: 22.4 cm2 LAV(MOD-bp) Indexed: 19.7 ml/m2 LVLd ap4: 7.4 cm LAV(MOD-sp2): 36.8 ml EDV(MOD-sp4): 55.3 ml LAV(MOD-sp4): 33.0 ml EDV(sp4-el): 57.1 ml LVAs ap4: 11.6 cm2 LVLs ap4: 5.9 cm ESV(MOD-sp4): 19.6 ml ESV(sp4-el): 19.2 ml EF(MOD-sp4): 64.6 % EF(sp4-el): 66.3 % SV(MOD-sp4): 35.8 ml SV(sp4-el): 37.9 ml LA A4 area: 13.6 cm2 SI(MOD-sp4): 20.3 ml/m2 LA dimension(2D): 3.5 cm RA A4 area: 9.0 cm2 Time Measurements MV dec time: 0.20 sec Doppler Measurements & Calculations MV E max dwayne: 97.9 cm/sec Lat Peak E' Dwayne: 8.4 cm/sec Med Peak E' Dwayne: 8.0 cm/sec MV A max dwayne: 99.4 cm/sec E/E' lat: 11.7 E/E' med: 12.2 MV E/A: 0.98 MV V2 max: 109.1 cm/sec Ao V2 max: 130.9 cm/sec MV max P.8 mmHg MV dec slope: 488.6 cm/sec2 Ao max P.9 mmHg MV V2 mean: 75.4 cm/sec Ao V2 mean: 92.0 cm/sec MV mean P.5 mmHg Ao mean P.8 mmHg MV V2 VTI: 35.3 cm Ao V2 VTI: 30.7 cm AV (velocity ratio): 0.81 MVA(VTI): 1.6 cm2 MOIRA(I,D): 1.9 cm2 MOIRA(V,D): 2.0 cm2 LV V1 max: 112.4 cm/sec SV(LVOT): 58.2 ml PA V2 max: 100.4 cm/sec LV V1 max P.1 mmHg PA V2 mean: 72.9 cm/sec LV V1 mean P.7 mmHg LV V1 mean: 76.7 cm/sec LV V1 VTI: 24.8 cm ECHO/Echo Complete Interpretation Summary The left ventricular ejection fraction is 65 %. Ordering Physician: Alicia Fajardo Referring Physician: Alicia Fajardo Performed By: Ashli Syed RCS
== END | disposition home or self-care (01) ==
LOC: CVS 12:50
PROVIDERS: PCP Student in an Organized Health Care Education/Training Program; Referring Provider Internal Medicine Cardiovascular Disease; Visit Provider Internal Medicine Cardiovascular Disease
DX: R07.9 Chest pain, unspecified (principal); I50.32 Chronic diastolic (congestive) heart failure; R06.02 Shortness of breath; R06.09 Other forms of dyspnea
CPT/HCPCS: 93306